=== PATIENT | female | born 1985 | race American Indian/Alaskan Native ===

== ENCOUNTER 2022-03-13 08:16 | Emergency (ER) | payer OTHER ==
[2022-03-13 08:54] VITALS: BP 134/76
[2022-03-13] MEDS ORDERED: LIDOCAINE VISCOUS 2% 15 ML ORAL LIQD MM NR (09:33)
--- NOTE | 2022-03-13 09:43 | Emergency Department Report ---
ED ENT HPI - General Chief complaint: Sore Throat Stated complaint: SOMETHING STUCK IN THROAT Time Seen by Provider: 03/13/22 09:33 Source: patient Mode of arrival: Ambulatory Limitations: No Limitations - History of Present Illness Initial comments: Eating a piece of chicken when developed a sensation of it being lodged in throat. Now when she eats or drinks it resultes in dysphagia and scant vomiting MD complaint: sore throat -: Sudden Location: throat Severity: moderate Improves with: none Worsens with: eating Associated Symptoms: pain with swallowing. denies: cough, gum swelling, toothache, tinnitus, hearing loss, discharge from ear, rhinorrhea - Related Data Allergies Allergy/AdvReac Type Severity Reaction Status Date / Time No Known Food Allergies Allergy none Verified 03/13/22 09:43 ED Dental HPI - General Chief complaint: Sore Throat Stated complaint: SOMETHING STUCK IN THROAT Time Seen by Provider: 03/13/22 09:33 Source: patient Mode of arrival: Ambulatory Limitations: No Limitations - Related Data Allergies Allergy/AdvReac Type Severity Reaction Status Date / Time No Known Food Allergies Allergy none Verified 03/13/22 09:43 ED Review of Systems ROS: Stated complaint: SOMETHING STUCK IN THROAT Other details as noted in HPI Comment: All other systems reviewed and negative ED Physical Exam - General Limitations: No Limitations General appearance: alert, in no apparent distress - Head Head exam: Present: atraumatic, normocephalic - Eye Eye exam: Present: normal appearance - ENT ENT exam: Present: normal orophraynx, mucous membranes moist, other (normal voice. No drooling . Airway patent. Speaking without dyspnea. No masses appreciated. ) - Neck Neck exam: Present: normal inspection, full ROM. Absent: tenderness, meningismus, lymphadenopathy, thyromegaly - Respiratory Respiratory exam: Present: normal lung sounds bilaterally. Absent: respiratory distress, wheezes, rales, rhonchi, stridor, accessory muscle use, decreased breath sounds - Cardiovascular Cardiovascular Exam: Present: regular rate, normal rhythm. Absent: systolic murmur, diastolic murmur, rubs, gallop - GI/Abdominal GI/Abdominal exam: Present: soft, normal bowel sounds - Extremities Exam Extremities exam: Present: normal inspection - Back Exam Back exam: Present: normal inspection - Neurological Exam Neurological exam: Present: alert, oriented X3 - Psychiatric Psychiatric exam: Present: normal affect, normal mood - Skin Skin exam: Present: warm, dry, intact, normal color. Absent: rash ED Course Vital Signs 03/13/22 08:50 Temperature 98.6 F Pulse Rate 84 Blood Pressure 134/76 [Right] O2 Sat by Pulse 96 Oximetry - Reevaluation(s) Reevaluation #1: 03/13/22 10:29 Advised patient that we will adjust the imaging and obtain a CT scan due to high inability to control or tolerate the lidocaine to the posterior pharynx. Reevaluation #2: 03/13/22 12:40 Patient not in room at this present time ED Medical Decision Making - Radiology Data Radiology results: report reviewed [facility] [address] [place] [address] Cat Scan Report Signed Patient: JJ BLANKENSHIP MR#: [id number] 6 : 1985 Acct:[id number] Age/Sex: 36 / F ADM Date: 03/13/22 Loc: ED Attending Dr: Ordering Physician: MARIO DUNLAP Date of Service: 03/13/22 Procedure(s): CT neck wo con Accession Number(s): [id number] cc: MARIO DUNLAP CT NECK WITHOUT CONTRAST INDICATION : dysphagia suspect FB. TECHNIQUE: Axial imaging performed from the skull base to the lung apices without the use of contrast. Sagittal and coronal reformatted images. All CT scans at this location are performed using CT dose reduction for ALARA by means of automated exposure control. COMPARISON: None FINDINGS: No radiopaque foreign body is identified in the upper aerodigestive tract on noncontrast CT. No evidence for mass or pathologic adenopathy. No inflammatory changes. The salivary glands and thyroid gland are unremarkable. Visualized brain and skull base structures are unrem arkable. The lung apices are clear. No osseous abnormality. IMPRESSION: No abnormality identified. No foreign body is detected. Signer Name: Erci Mayberry Jr, MD Signed: 03/13/2022 10:58 AM Workstation Name: [id number] Transcribed By: TTR Dictated By: ERIC MAYBERRY JR, MD Electronically Authenticated By: ERIC MAYBERRY JR, MD Signed Date/Time: 03/13/22 1058 DD/ 1054 TD/TT: - Medical Decision Making 36-year-old female asthma department complaining of suspected foreign body in the throat or foreign body down her windpipe in the form of a piece of chicken breast with no bone. States she was eating bone this morning and it went down the wrong pipe causing her throat irritation she reports no excessive coughing, no voice change, no drooling, no nausea, no vomiting, no hemoptysis no hematemesis. CT scan did not reveal any foreign body legs able to speak in full sentences and carry on a normal conversation no evidence of any drooling no physical findings on examination no evidence of any retained foreign body could be discovered patient was discharged home Critical care attestation.: If time is entered above; I have spent that time in minutes in the direct care of this critically ill patient, excluding procedure time. ED Disposition Clinical Impression: Dysphagia, Normal findings on CT scan Disposition: HOME / SELF CARE / HOMELESS Is pt being admited?: No Does the pt Need Aspirin: No Condition: Stable Instructions: Dysphagia, Barium Swallow Additional Instructions: Seen and evaluated emergency department for suspected foreign body to the throat. CT scan did not show any evidence of any retained foreign bodies no inflammatory changes no pathological history or physical findings which would contribute to your throat pain or trouble swallowing. Referrals: DAVE INIGUEZ MD [Staff Physician] - 3-5 Days TOM YEE MD [Referring] - 3-5 Days DONNY ARANGO MD [Staff Physician] - 3-5 Days
--- NOTE | 2022-03-13 11:02 | Cat Scan Report ---
CT NECK WITHOUT CONTRAST INDICATION : dysphagia suspect FB. TECHNIQUE: Axial imaging performed from the skull base to the lung apices without the use of contras t. Sagittal and coronal reformatted images. All CT scans at this location are performed using CT do se reduction for ALARA by means of automated exposure control. COMPARISON: None FINDINGS: No radiopaque foreign body is identified in the upper aerodigestive tract on noncontrast CT. No evide nce for mass or pathologic adenopathy. No inflammatory changes. The salivary glands and thyroid gland are unremarkable. Visualized brain and skull base structures are unremarkable. The lung apices are c lear. No osseous abnormality. IMPRESSION: No abnormality identified. No foreign body is detected. Signer Name: Eric Mayberry Jr, MD Signed: 03/13/2022 10:58 AM Workstation Name: [id number]
== END 2022-03-13 14:17 | disposition home or self-care (01) ==
LOC: ED 08:16
DX: R13.10 Dysphagia, unspecified (principal); R93.3 Abnormal findings on diagnostic imaging of other parts of digestive tract
CPT/HCPCS: 70490; 99283